=== PATIENT | male | born 1980 | race Two or more races ===

== ENCOUNTER 2024-06-08 10:15 | Day surgery (SDC) | payer OTHER, SELFPAY ==
[2024-06-08] VITALS (8 sets, daily range): BP systolic 90–128; BP diastolic 57–90; PULSE 69–77; RESP 13–19; TEMP 36.4–37; O2SAT 92–100; BMI 36.9
--- NOTE | 2024-06-08 09:27 | ESHP_ITS ---
RE: MEIR HAWLEY : 1980 DATE OF ADMISSION: 06/08/2024 HISTORY OF PRESENT ILLNESS: The patient is an inmate from [facility]. He is a 43-year-old gentleman with a history of urinary retention 8 months ago. He has been having some trouble urinating in the past. He had a history of back problem. He has a left scrotal pain. The patient has been unable to walk. He has a history of constipation. He had a Daugherty catheter 8 months ago, but the patient has been able to void now. PAST SURGICAL HISTORY: Included left femur surgery. He had a right ankle surgery. The patient had some piece of catheter in his bladder, which was removed in the past. SOCIAL HISTORY: The patient has one child. PAST MEDICAL HISTORY: There is no history of diabetes mellitus. No history of hypertension. ALLERGIES: NONE KNOWN. HOME MEDICATIONS: The patient is taking Effexor and some antibiotic. PHYSICAL EXAMINATION: HEENT: Normal. NECK: Supple. LUNGS: Clear. CARDIOVASCULAR: Heart sounds are normal. ABDOMEN: Soft without any organomegaly. No guarding. No rigidity. EXTREMITIES: Normal. GENITOURINARY: Phallus normal. Testes are down in the scrotum. There is a Daugherty catheter in the bladder. The urine is clear. RECTAL: Moderately enlarged smooth prostate. There are no nodules. LABORATORY DATA: The patient had a scrotal ultrasound done for his left pain. The ultrasound has been normal. PLAN: The patient was asked to have a urine culture, sensitivity examination, prostatic specific antigen, and he is going to have a cystoscopy for his possible neurogenic bladder. The patient was also asked to have a neurologic consultation. Planned procedure, risks, and complications of cystoscopy have been discussed with the patient. The patient has understood them and agreed to proceed. Thank you very much for your kind referral. DT: 12:27:44 TT: 13:58:00 Ref: [id number] - TID: [id number]
[2024-06-08] MEDS: RINGERS LACTATED 1000 ML 1,000 ML 20 ML IV (10:50)
--- NOTE | 2024-06-08 11:32 | SUR.PHASEI ---
Pt awake, alert, able to follow commands, breathing unlabored, report from Deepak DIAZ
--- NOTE | 2024-06-08 11:40 | SUR.PHASEI ---
pt tolerating ice chips without difficulty swallowing or n/v
--- NOTE | 2024-06-08 12:05 | SUR.PHASEII ---
Report to Deepak DIAZ
--- NOTE | 2024-06-08 12:40 | SUR.PHASEI ---
pt awake and alert, breathing unlabored on room air. v/s stable. pt has parikh catheter in place. pt able to transfer to wheelchair with assistance. d/c instructions given with pt and c/o in room, all questions answered. pt d/c via wheelchair with all belongings.
[2024-06-08 12:51] LABS: Prostate Specific Antigen 0.22 ng/mL (0-4.00)
--- NOTE | 2024-06-08 19:49 | ESOP_ITS ---
RE: MEIR HAWLEY : 1980 DATE OF OPERATION: 06/08/2024 PREOPERATIVE DIAGNOSIS: Chronic urinary retention, neurogenic bladder. POSTOPERATIVE DIAGNOSIS: Chronic urinary retention, neurogenic bladder. PROCEDURE PERFORMED: Cysto urethroscopy, urethral dilatation, insertion of the Daugherty catheter. ANESTHESIA: Monitored anesthesia. INDICATION: The patient is a 43-year-old gentleman. He is a prisoner at [facility]. He has chronic urinary retention for about 8 months. The patient has some back problems and it seems like he has a neurogenic bladder. The patient is unable to walk normally and he has a problem walking. The patient's Daugherty catheter, which has been changed every month just came out this morning and the patient has not been able to urinate. He is now scheduled to have cystoscopy. Plan, procedure, risks, and complications have been discussed with the patient. The patient understood them and agreed to proceed. DESCRIPTION OF PROCEDURE: After the patient was brought to the operating table under adequate monitored anesthesia and dorsal lithotomy position, parts were prepped and draped in the usual fashion. In a standard fashion, cystoscopy was then carried out, which revealed adequate urethral meatus, normal-appearing urethra without any evidence of urethral stricture, stenosis, or diverticula. Prostatic urethra revealed mild enlargement of prostate, which is bilobed and the prostate is otherwise open. Scope was introduced into the bladder. Residual urine was about 500 mL as the patient had his Daugherty catheter which came out this morning and the patient has not been able to urinate. There are no intravesical stones or no intravesical tumors. Ureteral orifices are found to be normal in position and appearance. Bladder mucosa is moderately trabeculated. Scope was withdrawn. A 16-Gren[place] Daugherty catheter was inserted into the bladder and was left indwelling. Bladder urine was sent for culture and sensitivity examination. IMPRESSION: Neurogenic bladder. The patient does not have any evidence of urethral obstruction. His prostate is small. PLAN: We will keep the Daugherty catheter in place. We would consider doing intermittent self-catheterization every 6-8 hours, which would be better for him as intermittent catheterization has less chance of urinary tract infections. Please have consult with urologist. We will get his PSA done here at this hospital. I would see him in my office in about 1 month's time. Thank you very much for your kind referral. cc: [facility] DT: 11:37:35 TT: 19:46:00 Ref: [id number] - TID: [id number]
== END 2024-06-08 12:40 | disposition home or self-care (01) ==
PROVIDERS: Referring Provider Surgery; Visit Provider Surgery
PROC: 0TJB8ZZ Inspection of Bladder, Via Natural or Artificial Opening Endoscopic (ICD-10-PCS; CPT 52000; principal; 2024-06-08 10:00)
DX: N31.9 Neuromuscular dysfunction of bladder, unspecified (principal); R33.8 Other retention of urine; N40.1 Benign prostatic hyperplasia with lower urinary tract symptoms
CPT/HCPCS: 52000; 36415; 84153; 87086; A4217; A4649; J0694; J2250; J2704; J3010; J7120